=== PATIENT | male | born 1980 | race African-American/Black ===

== ENCOUNTER 2018-08-20 20:54 | Emergency (ER) | payer OTHER ==
[2018-08-20 21:08] VITALS: BP 146/90; TEMP 100.5; BMI 36.0
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
[2018-08-20] MEDS ORDERED: ACETAMINOPHEN 500 MG TABLET (FP) PO ONE (21:14)
[2018-08-20] MEDS ORDERED: ACETAMINOPHEN 500 MG TABLET (FP) ONE (21:44)
[2018-08-20 22:07] LABS: ANION GAP 9 MMOL/L (8-16); BLOOD UREA NITROGEN 12 mg/dl (7-18); CALCIUM 9.2 mg/dl (8.5-10); CHLORIDE 104 mmol/L (98-107); CO2 23 mmol/L (21-32); GLUCOSE,RANDOM 119 mg/dl (74-106); POTASSIUM 3.6 mmol/L (3.5-5.1); SODIUM 136 mmol/L (136-145)
[2018-08-21] VITALS: PULSE 93
== END 2018-08-21 00:04 | disposition home or self-care (01) ==
LOC: FER 20:54
DX: J06.9 Acute upper respiratory infection, unspecified (principal); B97.89 Other viral agents as the cause of diseases classified elsewhere; S10.93XA Contusion of unspecified part of neck, initial encounter; X58.XXXA Exposure to other specified factors, initial encounter; Y93.9 Activity, unspecified
CPT/HCPCS: 36415; 70491-TC; 80048; 87804; 99282-25